=== PATIENT | female | born 1960 ===

== ENCOUNTER 2019-01-19 09:14 | Emergency (ER) | payer MEDICAID, OTHER ==
[2019-01-19 09:17] VITALS: BMI 19.8
[2019-01-19 09:18] VITALS: PULSE 70
[2019-01-19] MEDS ORDERED: Dexamethasone 10 MG in Sodium Chloride 0.9% 50 ML IV ONE (09:53)
[2019-01-19] MEDS ORDERED: Sodium Chloride 0.9% 1,000 ML IV STA (09:53)
--- NOTE | 2019-01-19 10:07 | ED PDOC ---
HPI: General Adult Time Seen by Provider: 01/19/19 09:40 Chief Complaint (Nursing): Dental Pain Chief Complaint (Provider): Mandible pain History Per: Patient History/Exam Limitations: no limitations Onset/Duration Of Symptoms: Days (3) Additional Complaint(s): Pt. with pain to the left TMJ for 3 days. Radiates up to the left forehead, and left neck. No numbness, tingles, weakness, dizziness, vision changes, sore throat, cough, fever. Able to open and close mouth with pain. Past Medical History Reviewed: Nursing Documentation, Vital Signs Vital Signs: Last Vital Signs Temp 97.5 F L 01/19/19 09:17 Pulse 70 01/19/19 09:17 Resp 17 01/19/19 09:17 BP 117/72 01/19/19 09:17 Pulse Ox 100 01/19/19 09:17 - Medical History PMH: HTN, Hyperlipidemia, Pancreatitis Other PMH: jaw dislocation - Surgical History Surgical History: Tonsillectomy - Family History Family History: States: Unknown Family Hx - Home Medications Home Medications: Ambulatory Orders Medication Instructions Recorded Diazepam [Valium] 2 mg PO BID PRN #6 tab 01/19/19 Ibuprofen [Motrin] 600 mg PO TID 7 Days tab 01/19/19 - Allergies Allergies/Adverse Reactions: Allergies Allergy/AdvReac Type Severity Reaction Status Date / Time latex Allergy Verified 01/19/19 09:52 morphine Allergy Verified 01/19/19 09:52 Penicillins Allergy Verified 01/19/19 09:52 Review of Systems ROS Statement: Except As Marked, All Systems Reviewed And Found Negative ENT: Positive for: Other (jaw pain) Musculoskeletal: Positive for: Neck Pain Neurological: Positive for: Headache Physical Exam - Reviewed Nursing Documentation Reviewed: Yes Vital Signs Reviewed: Yes - Physical Exam Appears: Positive for: Non-toxic, No Acute Distress Head Exam: Positive for: ATRAUMATIC, NORMAL INSPECTION, NORMOCEPHALIC Skin: Positive for: Normal Color, Warm, DRY Eye Exam: Positive for: EOMI, Normal appearance, PERRL ENT: Positive for: Other (left TMJ tender, mild swelling; pt. able to open and close mouth; no dental tenderness). Negative for: Nasal Congestion, Pharyngeal Erythema, Tonsillar Exudate Neck: Positive for: Normal, Painless ROM Cardiovascular/Chest: Positive for: Regular Rate, Rhythm Respiratory: Positive for: CNT, Normal Breath Sounds Gastrointestinal/Abdominal: Positive for: Normal Exam, Soft Back: Positive for: Normal Inspection. Negative for: L CVA Tenderness, R CVA Tenderness Extremity: Positive for: Normal ROM. Negative for: Tenderness, Pedal Edema Neurological/Psych: Positive for: Awake, Alert, Normal Tone - Laboratory Results Result Diagrams: 01/19/19 10:10 01/19/19 10:10 Interpretation Of Abn Labs: no acute - ECG O2 Sat by Pulse Oximetry: 100 - CT Scan/US ct Other Rad Studies (CT/US): Read By Radiologist Other Rad Interpretation: no acute - Progress ED Course And Treament: 1203: Stable. AAOx3. Pain free. Tolerated po. Pt. to fu with pcp. TMJ issues, advised to see dentist. Disposition - Clinical Impression Clinical Impression: Temporomandibular joint (TMJ) pain - Patient ED Disposition Is Patient to be Admitted: No Counseled Patient/Family Regarding: Studies Performed, Diagnosis, Need For Followup, Rx Given - Disposition Referrals: [facility] [Outside] - 01/20/19 Disposition: Routine/Home Disposition Time: 12:04 Condition: STABLE Additional Instructions: Return if not better in 3 days. See your dentist without fail in 3 days. Prescriptions: Diazepam [Valium] 2 mg PO BID PRN #6 tab PRN Reason: Muscle Spasm Ibuprofen [Motrin] 600 mg PO TID 7 Days tab Instructions: Temporomandibular Joint (TMJ) Disorders Forms: [facility] ([place]ian), [facility] ED School/Work Excuse
[2019-01-19 10:25] LABS: LYMPH # 1.2 K/uL (1.0-4.3); MONO # 0.5 K/uL (0.0-0.8); NEUT # 4.4 K/uL (1.8-7.0); NRBC % 0.1 % (0.0-0.0)
[2019-01-19 10:27] LABS: VENOUS BLOOD GAS BASE EXCESS 5.1 mmol/L (0.0-2.0); VENOUS BLOOD GAS PCO2 59 mmHg (40-60); VENOUS BLOOD GAS PO2 21 mm/Hg (30-55); VENOUS BLOOD PH 7.35 (7.32-7.43)
[2019-01-19 10:29] LABS: BASO # 0.1 K/uL (0.0-0.2); BASO % 0.8 % (0.0-2.0); EOS % 0.7 % (0.0-4.0); HEMOGLOBIN 13.1 g/dL (12.0-16.0); LYMPH % 20.1 % (20.0-40.0); MEAN CORPUSCULAR HEMOGLOBIN 31.3 pg (27.0-31.0); MEAN CORPUSCULAR HGB CONC 33.3 g/dL (33.0-37.0); MEAN PLATELET VOLUME 8.3 fl (7.2-11.7); MONO % 7.4 % (0.0-10.0); RBC 4.18 Mil/uL (3.80-5.20); RED CELL DISTRIBUTION WIDTH 13.9 % (11.5-14.5); WHITE BLOOD COUNT 6.2 K/uL (4.8-10.8)
[2019-01-19 10:32] LABS: ALB/GLOB RATIO 1.2 (1.0-2.1); ALBUMIN 4.5 g/dL (3.5-5.0); ALT/SGPT 23 U/L (9-52); AST/SGOT 23 U/L (14-36); BLOOD UREA NITROGEN 13 mg/dl (7-17); CALCIUM 8.9 mg/dL (8.4-10.2); GFR NON-AFRICAN AMERICAN > 60
--- NOTE | 2019-01-19 11:13 | CT ---
Date of service:01/19/2019 CT maxillofacial bones without IV contrast Indication: polo left TMJ and swelling left mandible Comparison: None available Technique: Axial computed tomography images were obtained of the maxillofacial bones without the use of intravenous contrast. Coronal and sagittal reformatted images were generated and reviewed. This CT exam was performed using 1 or more of the following dose reduction techniques: Automated exposure control, adjustment of the MAA and/or kV according to patient size, and/or use of iterative reconstruction technique. Radiation dose: Total exam DLP = 735.66 mGy-cm. Findings: Streak artifact from dental hardware. The facial bones appear unremarkable without acute displaced fracture. The orbits appear unremarkable. The temporomandibular joints appear located. The mastoid air cells appear clear. The paranasal sinuses appear clear. The visualized brain appears unremarkable. The soft tissues appear unremarkable. Impression: No acute findings identified. See above.
[2019-01-19 15:35] VITALS: BP 100/70; RESP 20; TEMP 98; O2SAT 98
== END 2019-01-19 15:35 | disposition home or self-care (01) ==
LOC: H.ER 09:14
DX: M26.622 Arthralgia of left temporomandibular joint (principal); I10 Essential (primary) hypertension; Z88.0 Allergy status to penicillin
CPT/HCPCS: 70486; 80053; 82803; 85025; 85651; 96361; 96374; 96375; 96376; 99284; J1100; J1885; J2765; J7030